=== PATIENT | female | born 1960 | race Caucasian/White ===

== ENCOUNTER 2023-01-08 13:33 | Emergency (ER) | payer BC, SELFPAY ==
--- NOTE | 2023-01-08 13:37 | ED.URI ---
HPI - URI/Sore Throat General Chief Complaint: Upper Respiratory Infection Stated Complaint: sinus congestion and discomfort Time Seen by Provider: 01/08/23 13:37 Source: patient Mode of arrival: ambulatory Limitations: no limitations History of Present Illness HPI Narrative: Patient is a 62-year-old female who presents with 1 week of sinus congestion, headache, sinus pressure, ear pressure and eye watering. Patient has been taking Mucinex, NyQuil, and Zicam nasal swabs. Also takes daily Flonase and Claritin. Patient denies any fever, blurred vision, sore throat, cough, shortness of breath. Related Data Home Medications Medication Instructions Recorded Confirmed estradiol 0.5 mg tablet 0.5 mg PO DIRECTED 01/08/23 01/08/23 Allergies Allergy/AdvReac Type Severity Reaction Status Date / Time sulfate ion Allergy Unknown Verified 01/08/23 14:07 Review of Systems Review of Systems: All systems reviewed & are unremarkable except as noted in HPI and below Constitutional: Constitutional: Denies body ache(s), Denies chills, Denies fatigue, Denies fever(s), Reports headache(s), Denies malaise and Denies weakness Eyes: Eyes: Denies blurry vision, Reports eye discharge, Denies itchy eyes and Denies loss of vision ENT: Denies otalgia, Reports headache(s), Reports nasal congestion, Denies sinus pain, Reports sinus pressure and Denies sore throat Cardiovascular: Cardiovascular: Denies chest pain, Denies irregular heart rhythm and Denies dyspnea Respiratory: Respiratory: Denies cough and Denies dyspnea Gastrointestinal: Gastrointestinal: Denies abdominal pain, Denies diarrhea, Denies nausea and Denies vomiting Musculoskeletal: Musculoskeletal: Denies back pain, Denies myalgias and Denies arthralgias Integumentary/Breasts: Skin/Breast: Denies pruritus and Denies rash Neurologic: Reports headache(s), Denies loss of vision and Denies weakness Psychiatric: Psychiatric: Reports no additional psychiatric complaints Endocrine: Endocrine: Denies fatigue Allergic/Immunologic: Allergic/Immunologic: Denies itchy eyes PMFSH Comments At time of signature, agree with nursing past medical, surgical, social and family history. There is no relevant family history pertinent to the presenting complaint. Exam Const: General: cooperative, healthy appearing, comfortable, no acute distress and well nourished Nutritional Appearance: well nourished Orientation/consciousness: patient oriented x3 Limitations: no limitations HENMT: Head: normal to inspection, normocephalic and atraumatic Ears: hearing grossly normal bilaterally, external ears normal, TM's normal bilaterally, EAC's normal and no periauricular adenopathy Face/Nose/Sinus: Normal external nose present, Abnormal mucous membranes and turbinates present erythematous bilateral and diffuse, normal facial exam, face symmetric and Facial tenderness on exam of face and sinuses Face and sinus: normal facial exam, sinuses nontender and face symmetric Mouth: Yes Normal oral and palatal mucosa present, Yes lip normal, Yes tongue normal, Yes Normal salivary glands and ducts present, Yes oropharynx normal and Yes moist mucous membranes Teeth and gingiva: dentition normal Throat: posterior oropharynx normal, tonsils normal, uvula midline and postnasal drainage Eyes: General: appearance normal, both eyes and all related structures Alignment and Position: alignment normal and position normal Periorbital: periorbital findings normal Eyelids: eyelids normal Pupils: Equal, round and reactive pupils present Neck: Neck: normal visual inspection, full ROM, no lymphadenopathy and supple Chest: Chest palpation & inspection: normal inspection of the chest and normal palpation of entire chest wall Resp: Effort & Inspection: normal respiratory effort and able to speak in complete sentences Auscultation: clear to auscultation bilaterally, no crackles, no rales, no rhonchi and no wheezes Cardio: Rate: r
[2023-01-08 13:51] VITALS: BP 155/86; PULSE 73; RESP 18; TEMP 36.6; O2SAT 97
== END 2023-01-08 14:11 | disposition home or self-care (01) ==
PROVIDERS: Emergency Provider Nurse Practitioner Family; PCP Internal Medicine
DX: J32.9 Chronic sinusitis, unspecified (principal); J45.909 Unspecified asthma, uncomplicated; Z86.16 Personal history of COVID-19
CPT/HCPCS: 99203; G0463

== ENCOUNTER 2023-01-29 14:32 | Emergency (ER) | payer BC, SELFPAY ==
[2023-01-29 14:57] VITALS: BP 133/68; PULSE 86; RESP 18; TEMP 37.1; O2SAT 97
--- NOTE | 2023-01-29 15:21 | ED.URI ---
HPI - URI/Sore Throat General Chief Complaint: Upper Respiratory Infection Stated Complaint: sorethroat Time Seen by Provider: 01/29/23 15:24 Source: patient and RN notes reviewed Mode of arrival: ambulatory Limitations: no limitations History of Present Illness HPI Narrative: 62-year-old female presented for complaint of right eye irritation and sore throat headache over the past few days. Reports right eye orantes, clear drainage and states it was matted shut this morning. Patient also states she was treated on 01/08 for sinus infection, and only completed about half of the course of the antibiotics due to stomach irritation. She states she was feeling better briefly but then the symptoms started after hiking and being outside. She is taking Flonase, Mucinex, cough syrup, and emergen-c. She denies shortness of breath, wheezing, nausea, vomiting, fevers or chills. MD elicited complaint: cough Related Data Home Medications Medication Instructions Recorded Confirmed estradiol 0.5 mg tablet 0.5 mg PO DIRECTED 01/08/23 01/29/23 Allergies Allergy/AdvReac Type Severity Reaction Status Date / Time sulfate ion AdvReac Mild Hives Verified 01/29/23 15:10 Review of Systems Review of Systems: CONSTITUTIONAL: Denies malaise, chills, sweats, fever EYES: Denies visual changes, redness, or discharge ENT: Reports rhinorrhea, congestion, sinus pain, sore throat CARDIOVASCULAR: Denies chest pain, palpitations, edema RESPIRATORY: Reports cough, post nasal drainage. Denies dyspnea GASTROINTESTINAL: Denies abdominal pain, nausea, vomiting, diarrhea SKIN: Denies rash or itching MUSCULOSKELETAL: Denies myalgia NEUROLOGIC: Reports headache PMFSH Past Medical History Medical History No pertinent past medical history Exam Narrative: GENERAL: Mildly Ill-appearing, nontoxic no acute distress. HEAD: Normocephalic EYES: PERRLA, EOMI, right conjunctival injection with clear drainage, mild lower lid swelling; lid eversion showed no foreign body ENT: Mucous membranes moist. nasal congestion. TM pearly grey with dull light reflex bilaterally; no tragal tenderness. Oropharynx erythematous without lesions or exudate, no drooling, no hoarseness, no trismus, uvula midline. No tripod positioning, muffled voice, soft palate or pharyngeal wall bulging NECK: Supple. No lymphadenopathy CHEST: Clear to auscultation, breath sounds equal. No wheezing, rhonchi, rales, or stridor. No respiratory distress, speaks in full sentences. HEART: Regular rate and rhythm. No murmur heard. SKIN: Warm, dry, no rash. NEURO: Alert and oriented x3. PSYCH: Normal mood and affect Course Course Emergency Course: Patient is aware of diagnosis, understands and agrees to treatment plan. Anticipatory guidance given. Patient agrees to follow-up as directed and is aware of reasons to seek care at the emergency department. Portions of this record may have been created with voice recognition software Level of Care: Express Care Visit Vital Signs Vital signs: Vital Signs Temperature 98.8 F 01/29/23 14:57 Pulse Rate 86 01/29/23 14:57 Respiratory Rate 18 01/29/23 14:57 Blood Pressure 133/68 01/29/23 14:57 Pulse Oximetry 97 01/29/23 14:57 Oxygen Delivery Room Air 01/29/23 14:57 Temperature 98.8 F 01/29/23 14:57 Pulse Rate 86 01/29/23 14:57 Respiratory Rate 18 01/29/23 14:57 Blood Pressure 133/68 01/29/23 14:57 Pulse Oximetry 97 01/29/23 14:57 Oxygen Delivery Room Air 01/29/23 14:57 reviewed MDM - URI/Sore Throat MDM Narrative Medical decision making narrative: Results of strep test reviewed with patient. Discussed physical exam findings. Advised supportive measures and signs/symptoms to go to the ER. Pt is appropriate for outpt treatment and f/u. Differential Diagnosis Differential diagnosis: Likely upper respiratory infection, otitis media, sinusi
== END 2023-01-29 16:00 | disposition home or self-care (01) ==
PROVIDERS: Emergency Provider Nurse Practitioner Family; PCP Physician Assistant
DX: J06.9 Acute upper respiratory infection, unspecified (principal); H10.9 Unspecified conjunctivitis
CPT/HCPCS: 87081; 87880; 99213; G0463